=== PATIENT | male | born 1965 | race Caucasian/White ===

== ENCOUNTER 2021-04-11 13:17 | Emergency (ER) | payer BC, MEDICAID ==
[~2021-04-11] VITALS: Ht 170.2 cm; Wt 72.6 kg
[2021-04-11 13:49] VITALS: BP_SYST 132
[2021-04-11 15:28] VITALS: BP_SYST 132
== END 2021-04-11 15:28 | disposition home or self-care (01) ==
LOC: SED 13:17
DX: M77.11 Lateral epicondylitis, right elbow (principal)
CPT/HCPCS: 99282

== ENCOUNTER 2022-12-27 07:48 | Day surgery (SDC) | payer MEDICAID ==
[~2022-12-27] VITALS: Ht 172.7 cm; Wt 88.5 kg
[2022-12-27 08:00] VITALS: O2SAT 98
[2022-12-27] MEDS ORDERED: MIDAZOLAM HCL 5 MG/5 ML VIAL ONE (09:20)
[2022-12-27] MEDS ORDERED: MEPERIDINE 100 MG INJ. 100 MG/ML VIAL ONE (09:20)
[2022-12-27 13:34] VITALS: BP_SYST 141; PULSE 59; RESP 16
== END 2022-12-27 11:20 | disposition home or self-care (01) ==
LOC: SDS 07:48 → SMU 07:49 → SDS 11:20
PROVIDERS: ATTEND Internal Medicine Gastroenterology
DX: Z12.11 Encounter for screening for malignant neoplasm of colon (principal); D12.3 Benign neoplasm of transverse colon; K64.8 Other hemorrhoids; Z86.010 Personal history of colon polyps; Z79.899 Other long term (current) drug therapy
CPT/HCPCS: 45385; 88305; 99152; 99153; G0378; J2250; J2175